=== PATIENT | male | born 1970 | race Caucasian/White ===

== ENCOUNTER 2016-08-22 22:07 | Emergency (ER) | payer MEDICAID ==
[2016-08-22] MEDS ORDERED: NS 1,000 ML IV ONE (22:12)
--- NOTE | 2016-08-22 22:14 | EDPHY ---
H & P HPI/ROS: HPI CHIEF COMPLAINT: Overdose HISTORY OF PRESENT ILLNESS: This patient 46-year-old male significant past medical history for bipolar disorder, depression, anxiety, presents emergency room by EMS with police, for suicidal ideation and attempt of overdose of Adderall. Patient tells me took approximately 50-60 20 mg Adderall to end his life. He is in police custody. He denies taking anything else other medications he is prescribed his Neurontin and Klonopin. He denies taking anything else. Does endorse drinking 2 beers earlier today. Past Medical History: Bipolar, depression, anxiety, neuropathy, anxiety Past Surgical History: Denies surgical history Social History: Occasional alcohol use, denies drugs or tobacco. Family History: Noncontributory ROS REVIEW OF SYSTEMS: A comprehensive 10 point review of systems is otherwise negative aside from elements mentioned in the history of present illness. Exam Constitutional triage nursing summary reviewed, vital signs reviewed, awake/ alert. Eyes normal conjunctivae and sclera, EOMI, PERRLA. HENT normal inspection, atraumatic, moist mucus membranes, no epistaxis, neck supple/ no meningismus, no raccoon eyes. Respiratory clear to auscultation bilaterally, normal breath sounds, no respiratory distress, no wheezing. Cardiovascular rate normal, regular rhythm, no murmur, no edema, distal pulses normal. Gastrointestinal soft, non-tender, no rebound, no guarding, normal bowel sounds, no distension, no pulsatile mass. Genitourinary no CVA tenderness. Musculoskeletal no midline vertebral tenderness, full range of motion, no calf swelling, no tenderness of extremities, no meningismus, good pulses, neurovascularly intact. Skin pink, warm, & dry, no rash, skin atraumatic. Neurologic awake, alert and oriented x 3, AAOx3, moves all 4 extremities equally, motor intact, sensory intact, CN II-XII intact, normal cerebellar, normal vision, normal speech. Psychiatric flat affect, depressed Heme/Lymph/Immune no lymphadenopathy. Differential Diagnosis: Includes but is not limited to in a particular order, drug overdose, Adderall overdose, suicidal ideation, depression, bipolar disorder Medical Decision Making: Patient be placed on full monitor technician patient had an IV established receive a fluid bolus will contact poison Control about the 50 -60 20 mg Adderall. Will check blood work including LFTs, CBC, electrolytes, aspirin level, Tylenol level, alcohol, drug screen. Re-evaluation: EKG interpretation by me on record in [employer] system. Impression time of EKG 09/09/2026 this is sinus rhythm rate of 93 no signs of arrhythmia, no prolonged intervals, no signs of acute ischemia normal appearing EKG. 0213: re-examination at this time this patient is resting comfortably. he has been monitored close to 5 hours here in the emergency room is not not had any signs of agitation, no signs of tachycardia, no signs of serotonin syndrome or other toxidrome. His vitals have been normal resting comfortably he has no complaints he states he feels well. Specifically denies agitation, denies feeling anxious, denies headache nausea vomiting abdominal pain or chest pain. It is unlikely the took this much Adderall. There has been no evidence of an acute ingestion. Specifically he has not been agitated. He is comfortable discharge. Source: Patient, Police, EMS Constitutional: Initial Vital Signs Temperature (C) 36.6 C 08/22/16 22:17 Heart Rate 106 H 08/22/16 22:17 Respiratory Rate 16 08/22/16 22:17 Blood Pressure 143/98 H 08/22/16 22:17 O2 Sat (%) 99 08/22/16 22:17 O2 Delivery Mode Room Air Allergies/Adverse Reactions: No Known Allergies Allergy (Unverified 08/22/16 22:15) Home Medications: Medication Instructions Recorded Adderall 10 MG (*) 08/22/16 CLONAZEPAM 08/22/16 Neurontin 300 MG (*) 08/22/16 Medical Decision Making - Data Points Laboratory Results: Laboratory Results 08/22/16 22:20 08/22/16 22:20 08/22/16 08/22/16 22:34 22:20 WBC 7.41 10^3/uL (3.80-9.50) RBC 4.60 10^6/uL (4.40-6.38) Hgb 13.8 g/dL (13.7-17.5) Hct 39.9 L % (40.0-51.0) MCV 86.7 fL (81.5-99.8) MCH 30.0 pg (27.9-34.1) MCHC 34.6 g/dL (32.4-36.7) RDW 15.7 H % (11.5-15.2) Plt Count 369 10^3/uL (150-400) MPV 8.9 fL (8.7-11.7) Neut % (Auto) 65.0 % (39.3-74.2) Lymph % (Auto) 28.2 % (15.0-45.0) [place] % (Auto) 5.7 % (4.5-13.0) Eos % (Auto) 0.1 L % (0.6-7.6) Baso % (Auto) 0.7 % (0.3-1.7) Nucleat RBC Rel Count 0.0 % (0.0-0.2) Absolute Neuts (auto) 4.82 10^3/uL (1.70-6.50) Absolute Lymphs (auto) 2.09 10^3/uL (1.00-3.00) Absolute Monos (auto) 0.42 10^3/uL (0.30-0.80) Absolute Eos (auto) 0.01 L 10^3/uL (0.03-0.40) Absolute Basos (auto) 0.05 10^3/uL (0.02-0.10) Absolute Nucleated RBC 0.00 10^3/uL (0-0.01) Immature Gran % 0.3 % (0.0-1.1) Immature Gran # 0.02 10^3/uL (0.00-0.10) Sodium 141 mEq/L (134-144) Potassium 4.2 mEq/L (3.5-5.2) Chloride 110 mEq/L (97-110) Carbon Dioxide 21 L mEq/l (22-31) Anion Gap 10 mEq/L (8-16) BUN 8 mg/dL (7-23) Creatinine 1.0 mg/dL (0.7-1.3) Estimated GFR > 60 Glucose 89 mg/dL (70-100) Calcium 9.1 mg/dL (8.5-10.4) Total Bilirubin 0.6 mg/dL (0.1-1.4) Conjugated Bilirubin 0.3 mg/dL (0.0-0.5) Unconjugated Bilirubin 0.3 mg/dL (0.0-1.1) AST 52 IU/L (17-59) ALT 50 IU/L (21-72) Alkaline Phosphatase 72 IU/L (38-126) Total Protein 7.6 g/dL (6.3-8.2) Albumin 3.9 g/dL (3.5-5.0) Salicylates < 1.0 L mg/dL (2.0-20.0) Urine Opiates Screen NEGATIVE (NEGATIVE) Acetaminophen < 10 L mcg/mL (10.0-30.0) Urine Barbiturates NEGATIVE (NEGATIVE) Ur Phencyclidine Scrn NEGATIVE (NEGATIVE) Ur Amphetamine Screen NON-NEGATIVE H (NEGATIVE) U Benzodiazepines Scrn NEGATIVE (NEGATIVE) Urine Cocaine Screen NEGATIVE (NEGATIVE) U Marijuana (THC) Screen NEGATIVE (NEGATIVE) Ethyl Alcohol 120 H mg/dL (0-10) Medications Given: Discontinued Medications Sodium Chloride (Ns) 1,000 mls @ 0 mls/hr IV ONCE ONE PRN Reason: As Directed Stop: 08/22/16 22:13 Last Admin: 08/22/16 22:25 Dose: 1,000 mls Departure - Departure Disposition: Home, Routine, Self-Care Clinical Impression: Depression Qualifiers: Depression Type: major depressive disorder Major depression recurrence: single episode Active/Remission status: currently active Major depression episode severity: mild Qualifier Code: (F32.0) Major depressive disorder, single episode , mild Condition: Good Instructions: Depression (ED) Additional Instructions: 1. Patient is medically cleared for [facility].
[2016-08-22 22:21] VITALS: RESP 16; TEMP 97.9
--- NOTE | 2016-08-22 22:29 | CPEKG ---
Heart Rate: 93 RR Interval: 645 P-R Interval: 136 QRSD Interval: 86 QT Interval: 360 QTC Interval: 448 P [place]: 60 QRS [place]: 77 T Wave [place]: 56 EKG Severity - NORMAL ECG - EKG Impression: SINUS RHYTHM Electronically Signed By: Leonardo Carrillo 23-Aug-2016 05:38:57
[2016-08-22 22:33] LABS: % IMMATURE GRANULYOCYTES 0.3 % (0.0-1.1); ABSOLUTE IMMATURE GRANULOCYTES 0.02 10^3/uL (0.00-0.10); ADD DIFF? NO; ADD MORPH? NO; ADD SCAN? NO; ATYPICAL LYMPHOCYTE FLAG 0 (0-99); FRAGMENT RBC FLAG 0 (0-99); HEMATOCRIT 39.9 % (40.0-51.0); HEMOGLOBIN 13.8 g/dL (13.7-17.5); LEFT SHIFT FLG 0 (0-99); LIPEMIA HEMOLYSIS FLAG 90 (0-99); MEAN CELL HEMOGLOBIN CONCENTR. 34.6 g/dL (32.4-36.7); MEAN CELL VOLUME 86.7 fL (81.5-99.8); MEAN PLATELET VOLUME 8.9 fL (8.7-11.7); PLATELET CLUMPS FLAG 0 (0-99); PLATELET COUNT 369 10^3/uL (150-400); RED CELL DISTRIBUTION WIDTH 15.7 % (11.5-15.2)
[2016-08-22 22:59] LABS: ALANINE AMINOTRANSFERASE 50 IU/L (21-72); ALBUMIN 3.9 g/dL (3.5-5.0); ALKALINE PHOSPHATASE 72 IU/L (38-126); ANION GAP 10 mEq/L (8-16); ASPARTATE AMINOTRANSFERASE 52 IU/L (17-59); BILIRUBIN,TOTAL 0.6 mg/dL (0.1-1.4); BILIRUBIN-CONJUGATED 0.3 mg/dL (0.0-0.5); BILIRUBIN-UNCONJUGATED 0.3 mg/dL (0.0-1.1); CALCIUM 9.1 mg/dL (8.5-10.4); CARBON DIOXIDE 21 mEq/l (22-31); CHLORIDE 110 mEq/L (97-110); ETHANOL SERUM 120 mg/dL (0-10); GLOMERULAR FILTRATION RATE > 60; GLUCOSE 89 mg/dL (70-100); POTASSIUM 4.2 mEq/L (3.5-5.2); SALICYLATE < 1.0 mg/dL (2.0-20.0); SODIUM 141 mEq/L (134-144); TOTAL PROTEIN 7.6 g/dL (6.3-8.2)
[2016-08-23 02:02] VITALS: BP 142/101; PULSE 74; O2SAT 95
== END 2016-08-23 02:37 | disposition home or self-care (01) ==
DX: F32.0 Major depressive disorder, single episode, mild (principal)
CPT/HCPCS: 80305; G0480

== ENCOUNTER 2016-09-16 21:15 | Emergency (ER) | payer MEDICAID ==
--- NOTE | 2016-09-16 21:32 | EDPHY ---
H & P Time Seen by Provider: 09/16/16 21:28 HPI/ROS: CHIEF COMPLAINT: Concerned about heroin overdose. HISTORY OF PRESENT ILLNESS: The patient is a 46-year-old male who presents worried that he overdosed on heroin, which he took an hour ago. He was seen at the [facility] and sent here. His last alcoholic drink was an hour ago and his last Klonopin was 2 hours ago. He is hoping to start detoxing off these medications and is seeking resources. He is concerned for grand mal withdrawal seizures, which he has had before. He denies recent sickness. REVIEW OF SYSTEMS: A complete 10-point review of systems was performed and is negative except for those items mentioned in the HPI. Past Medical/Surgical History: Seizures. Social History: Smoker, polysubstance abuse. Smoking Status: Current every day smoker Physical Exam: General Appearance: Alert, pleasant Eyes: Pupils equal and round, 3mm, no conjunctival pallor or injection ENT, Mouth: Mucous membranes moist Neck: Normal inspection Respiratory: Lungs are clear to auscultation Cardiovascular: Regular rate and rhythm Gastrointestinal: Abdomen is soft and non-tender Neurological: A&O, nonfocal, normal gait Skin: Warm and dry, no rash Extremities: Normal inspection Psychiatric: Mood and affect normal Constitutional: Initial Vital Signs Heart Rate 106 H 09/16/16 22:00 Respiratory Rate 18 09/16/16 22:00 Blood Pressure 127/89 H 09/16/16 22:00 O2 Sat (%) 95 09/16/16 22:00 O2 Delivery Mode Room Air Allergies/Adverse Reactions: No Known Allergies Allergy (Unverified 08/22/16 22:15) Home Medications: Medication Instructions Recorded Adderall 10 MG (*) 08/22/16 CLONAZEPAM 08/22/16 Neurontin 300 MG (*) 08/22/16 IBUPROFEN 09/16/16 Medical Decision Making ED Course/Re-evaluation: Mental Health will speak to the patient about rehab resources. He will be monitored in the emergency room for effects related to the heroin. 2199: The mental health air brake worker has consulted with the patient. They are working on resources for the patient and considering treatment options. 2235: Reassessed patient. The mental health air brake worker has finished her consultation and provided the patient numerous resources, which he will follow up with. On exam he shows no evidence of respiratory compromise secondary to opiate use. He is safe and stable for discharge at this time. He is comfortable with the plan. Departure - Departure Disposition: Home, Routine, Self-Care Clinical Impression: Polysubstance abuse Condition: Good Instructions: Polysubstance Abuse (ED) Additional Instructions: Follow up with the resources provided to you by the mental health air brake worker. Return for any serious worsening of condition. Referrals: [facility],. [Clinic] - As per Instructions Report Scribed for: Letty Anders Report Scribed by: Gabe Barakat Date of Report: 09/16/16 Time of Report: 21:29 Physician Review and Approval Statement: 09/16/16 21:30 Portions of this note were transcribed by a administrative medical director. I personally performed a history, physical exam, medical decision making, and confirmed accuracy of information the transcribed note.
[2016-09-16 22:19] VITALS: BP 127/89; RESP 18
[2016-09-16 22:47] VITALS: PULSE 101; TEMP 98.2; O2SAT 94
== END 2016-09-16 22:53 | disposition home or self-care (01) ==
DX: F19.10 Other psychoactive substance abuse, uncomplicated (principal); F17.200 Nicotine dependence, unspecified, uncomplicated

== ENCOUNTER 2016-12-16 10:26 | Emergency (ER) | payer MEDICAID ==
[2016-12-16 10:30] VITALS: TEMP 98.2
[2016-12-16] MEDS ORDERED: IOPAMIDOL (ISOVUE 370) 100 ML BTL IV ONE (11:07)
--- NOTE | 2016-12-16 11:08 | EDPHY ---
H & P Stated Complaint: "I think I have walking PNA" Resp sxs ~ 1month Source: Patient - Personal History Current Tetanus Diphtheria and Acellular Pertussis (TDAP): Yes - Medical/Surgical History Hx Asthma: No Hx Chronic Respiratory Disease: No Hx Diabetes: No Hx Cardiac Disease: No Hx Renal Disease: No Hx Cirrhosis: No Hx Alcoholism: Yes Hx HIV/AIDS: No Hx Splenectomy or Spleen Trauma: No Other PMH: PMHx: depression, anxiety, suicide attempts, Hep C+, etoh, IV drug user, ADHD, bipolar disorder. PSHx: liver biopsy, tooth extraction - Social History Smoking Status: Current every day smoker HPI/ROS: CHIEF COMPLAINT: "I think I have pneumonia" HISTORY OF PRESENT ILLNESS: Patient reports that he feels he may have pneumonia. He has had symptoms over the month including shortness of breath, cough, chest pressure. No fever. He feels the same as when he has had pneumonia in the past. He has intermittent pressure and shortness of breath. He has no chest pain with exertion. He has no abdominal urinary complaints. No headache. No neck pain. No lesions or rashes. He does admit to alcoholism and heroin abuse. Most recently use yesterday. No other associated complaints or modifying factors. REVIEW OF SYSTEMS: Ten systems reviewed and are negative unless otherwise noted in the HPI PERTINENT MEDICAL HISTORY: Alcoholism, IV heroin abuse EXAMINATION General Appearance: Alert, no distress, nontoxic Head: normocephalic, atraumatic Eyes: Pupils equal and round, no conjunctival pallor or injection ENT, Mouth: Mucous membranes moist. Uvula midline. No erythema or edema. Neck: Normal inspection, supple, non-tender. No meningismus or rigidity. Respiratory: Scattered rhonchi. No crackles. No diminishment. No retractions. Cardiovascular: Regular rate and rhythm. No murmur. Pulses intact distally in symmetrically Gastrointestinal: Abdomen is soft and nontender. No tenderness. Back: non-tender, no bony abnormalities Neurological: GCS 15. A&O, nonfocal, normal gait Skin: Warm and dry, no rash. No petechiae or purpura. No splinter lesions. No lesions of the palms of the hands or soles of the feet. Extremities: Nontender, no pedal edema Psychiatric: Mood and affect normal DIFFERENTIAL DIAGNOSES: Including but not limited to pneumonia, bronchitis, influenza, viral illness, PE , endocarditis, ACS MDM: 11:03 a.m. Cough, chest pressure and respiratory complaints over the past month. The patient feels that he has pneumonia. He is tachycardic but he is afebrile, he is not tachypneic and he does not appear toxic. Laboratory studies, blood cultures, lactic acid, CT scan of the chest have been ordered. 11:20 a.m. Patient does have a history of IV drug abuse, thus IV access has been difficult. We have so far obtained an EJ access. Due to this, and the inability to obtain a CT angiography through this IV, I have ordered a D-dimer and a two view chest x-ray. Will continue with IV fluid resuscitation in the event that we may need to obtain a secondary IV access point. 12:00 p.m. He was re-evaluated the patient. He is resting calmly. Laboratory studies are negative including a negative troponin and BNP. CT scan is pending. 12:40 p.m. Notified by radiologist Dr. Khan. CT scan of the chest is negative for PE or any pulmonary findings. There is no acute finding. 12:50 p.m. I have re-evaluated the patient. He is tachycardic but in no acute distress. I informed him of the negative laboratory studies, negative EKG, negative chest x- ray and CT scan. He informed me that he is feeling withdrawal symptoms from both alcohol and heroin. He informed me that he normally has started to drink alcohol by this time and has not had anything since 12 o'clock last night. I have ordered IV Ativan as well as another L of IV fluid and will monitor him 1:50 p.m. Patient is feeling much better after the Ativan in fluid. He is still mildly tachycardic. I have discussed this with Dr. Leal. He has is comfortable with the patient discharged home at this time. I suspect this is due to lack of alcohol intake and lack of heroin use. I provided prescription for clonidine. Additionally, the sample case porter shared visit with him. She provided multiple outpatient resource for the patient. He declined being sent to the [facility] with Librium taper. He is discharged home at his request in stable condition. SUPERVISION: [facility] Constitutional: Initial Vital Signs Temperature (C) 36.8 C 12/16/16 10:27 Heart Rate 126 H 12/16/16 10:27 Respiratory Rate 18 12/16/16 10:27 Blood Pressure 117/98 H 12/16/16 10:27 O2 Sat (%) 95 12/16/16 10:27 O2 Delivery Mode Room Air Allergies/Adverse Reactions: No Known Allergies Allergy (Verified 12/16/16 10:27) Home Medications: Medication Instructions Recorded Adderall 10 MG (*) 08/22/16 CLONAZEPAM 08/22/16 Neurontin 300 MG (*) 08/22/16 IBUPROFEN 09/16/16 Albuterol [Proventil Inhaler HFA 1 - 2 puffs IH Q4H PRN #1 mdi 12/16/16 (*)] Azithromycin [Zithromax] 250 mg PO DAILY #6 tab 12/16/16 clonIDINE [Catapres (*)] 0.1 mg PO TID PRN #15 tab 12/16/16 Medical Decision Making - Diagnostics EKG Interpretation: EKG interpreted by me was normal (Brian Leal) Imaging Results: Imaging Impressions Chest/Thorax CTA 12/16/16 11:02 Impression: 1. No evidence of thrombopulmonary embolic disease. 2. Clear lungs. No pneumonia or acute process. 3. Tiny benign calcified granuloma in the right lower lobe. Findings discussed with Emergency Department physician after school program assistant, Hung Cobos PA-C on December 16, 2016 at 1241 hours. Chest X-Ray 12/16/16 11:26 Impression: Clear lungs. No acute process. ED Course/Re-evaluation: I did not see this patient while he was in the emergency department. However his care was discussed with the PA while the patient was in the department. I agree with treatment plan and management (Brian Leal) - Data Points Laboratory Results: Laboratory Results 12/16/16 11:22 12/16/16 11:22 12/16/16 12/16/16 12/16/16 11:22 11:22 11:22 WBC 9.63 10^3/uL H 10^3/uL (3.80-9.50) RBC 4.49 10^6/uL 10^6/uL (4.40-6.38) Hgb 13.2 g/dL L g/dL (13.7-17.5) Hct 38.5 % L % (40.0-51.0) MCV 85.7 fL fL (81.5-99.8) MCH 29.4 pg pg (27.9-34.1) MCHC 34.3 g/dL g/dL (32.4-36.7) RDW 14.3 % % (11.5-15.2) Plt Count 339 10^3/uL 10^3/uL (150-400) MPV 9.2 fL fL (8.7-11.7) Neut % (Auto) 71.8 % % (39.3-74.2) Lymph % (Auto) 20.5 % % (15.0-45.0) [place] % (Auto) 7.2 % % (4.5-13.0) Eos % (Auto) 0.0 % L % (0.6-7.6) Baso % (Auto) 0.2 % L % (0.3-1.7) Nucleat RBC Rel Count 0.0 % % (0.0-0.2) Absolute Neuts (auto) 6.92 10^3/uL H 10^3/uL (1.70-6.50) Absolute Lymphs (auto) 1.97 10^3/uL 10^3/uL (1.00-3.00) Absolute Monos (auto) 0.69 10^3/uL 10^3/uL (0.30-0.80) Absolute Eos (auto) 0.00 10^3/uL L 10^3/uL (0.03-0.40) Absolute Basos (auto) 0.02 10^3/uL 10^3/uL (0.02-0.10) Absolute Nucleated RBC 0.00 10^3/uL 10^3/uL (0-0.01) Immature Gran % 0.3 % % (0.0-1.1) Immature Gran # 0.03 10^3/uL 10^3/uL (0.00-0.10) PT 12.4 SEC SEC (12.0-15.0) INR 0.93 (0.83-1.16) APTT 24.4 SEC SEC (23.0-38.0) D-Dimer 0.50 ug/mLFEU ug/mLFEU (0.00-0.50) VBG Lactic Acid Sodium 140 mEq/L mEq/L (134-144) Potassium 4.1 mEq/L mEq/L (3.5-5.2) Chloride 107 mEq/L mEq/L (97-110) Carbon Dioxide 21 mEq/l L mEq/l (22-31) Anion Gap 12 mEq/L mEq/L (8-16) BUN 15 mg/dL mg/dL (7-23) Creatinine 0.9 mg/dL mg/dL (0.7-1.3) Estimated GFR > 60 Glucose 127 mg/dL H mg/dL (70-100) Calcium 9.2 mg/dL mg/dL (8.5-10.4) Total Bilirubin 0.5 mg/dL mg/dL (0.1-1.4) Troponin I < 0.012 ng/mL ng/mL (0-0.034) NT-Pro-B Natriuret Pep 59 pg/mL pg/mL (0-125) 12/16/16 11:22 WBC RBC Hgb Hct MCV MCH MCHC RDW Plt Count MPV Neut % (Auto) Lymph % (Auto) [place] % (Auto) Eos % (Auto) Baso % (Auto) Nucleat RBC Rel Count Absolute Neuts (auto) Absolute Lymphs (auto) Absolute Monos (auto) Absolute Eos (auto) Absolute Basos (auto) Absolute Nucleated RBC Immature Gran % Immature Gran # PT INR APTT D-Dimer VBG Lactic Acid 1.9 mmol/L mmol/L (0.7-2.1) Sodium Potassium Chloride Carbon Dioxide Anion Gap BUN Creatinine Estimated GFR Glucose Calcium Total Bilirubin Troponin I NT-Pro-B Natriuret Pep Medications Given: Discontinued Medications Sodium Chloride (Ns) 1,000 mls @ 0 mls/hr IV ONCE ONE PRN Reason: Wide Open Stop: 12/16/16 11:33 Last Admin: 12/16/16 11:36 Dose: 1,000 mls Sodium Chloride (Ns) 1,000 mls @ 0 mls/hr IV ONCE ONE PRN Reason: Wide Open Stop: 12/16/16 12:50 Last Admin: 12/16/16 12:53 Dose: 1,000 mls Lorazepam (Ativan Injection) 2 mg IVP EDNOW ONE Stop: 12/16/16 12:49 Last Admin: 12/16/16 12:53 Dose: 2 mg Departure - Departure Disposition: Home, Routine, Self-Care Clinical Impression: Cough, Substance abuse, Alcohol abuse Chest pain Qualifiers: Chest pain type: unspecified Qualified Code(s): R07.9 - Chest pain, unspecified Condition: Good Instructions: Chest Pain (ED), Acute Bronchitis (ED) Additional Instructions: Medications as discussed. Contact primary care physician tomorrow morning for follow-up and to discuss further workup for the chest pain. Return here for worsening symptoms, fever, chills, rashes, lesions on the fingernails or palms of the hands Referrals: DR SILVA [Other] - As per Instructions Prescriptions: Albuterol [Proventil Inhaler HFA (*)] 1 - 2 puffs IH Q4H PRN #1 mdi PRN Reason: Short Of Breath/Dyspnea Azithromycin [Zithromax] 250 mg PO DAILY #6 tab clonIDINE [Catapres (*)] 0.1 mg PO TID PRN #15 tab PRN Reason: Pain, Mild
[2016-12-16 11:29] LABS: % IMMATURE GRANULYOCYTES 0.3 % (0.0-1.1); ABSOLUTE IMMATURE GRANULOCYTES 0.03 10^3/uL (0.00-0.10); ADD DIFF? NO; ADD MORPH? NO; ADD SCAN? NO; ATYPICAL LYMPHOCYTE FLAG 30 (0-99); FRAGMENT RBC FLAG 0 (0-99); HEMATOCRIT 38.5 % (40.0-51.0); HEMOGLOBIN 13.2 g/dL (13.7-17.5); LEFT SHIFT FLG 0 (0-99); LIPEMIA HEMOLYSIS FLAG 90 (0-99); MEAN CELL HEMOGLOBIN 29.4 pg (27.9-34.1); MEAN CELL HEMOGLOBIN CONCENTR. 34.3 g/dL (32.4-36.7); MEAN CELL VOLUME 85.7 fL (81.5-99.8); MEAN PLATELET VOLUME 9.2 fL (8.7-11.7); PLATELET CLUMPS FLAG 10 (0-99); PLATELET COUNT 339 10^3/uL (150-400); RED BLOOD CELL COUNT 4.49 10^6/uL (4.40-6.38); RED CELL DISTRIBUTION WIDTH 14.3 % (11.5-15.2)
[2016-12-16] MEDS ORDERED: NS 1,000 ML IV ONE ×2 (11:32→12:49)
[2016-12-16 11:41] LABS: INR 0.93 (0.83-1.16); PROTIME(PATIENT) 12.4 SEC (12.0-15.0)
[2016-12-16 11:42] LABS: APTT 24.4 SEC (23.0-38.0)
[2016-12-16 11:49] LABS: ANION GAP 12 mEq/L (8-16); BILIRUBIN,TOTAL 0.5 mg/dL (0.1-1.4); CALCIUM 9.2 mg/dL (8.5-10.4); CARBON DIOXIDE 21 mEq/l (22-31); CHLORIDE 107 mEq/L (97-110); CREATININE 0.9 mg/dL (0.7-1.3); GLOMERULAR FILTRATION RATE > 60; GLUCOSE 127 mg/dL (70-100); POTASSIUM 4.1 mEq/L (3.5-5.2); SODIUM 140 mEq/L (134-144)
[2016-12-16 11:59] LABS: TROPONIN I < 0.012 ng/mL (0-0.034)
--- NOTE | 2016-12-16 12:15 | CPEKG ---
Heart Rate: 135 RR Interval: 444 P-R Interval: 92 QRSD Interval: 108 QT Interval: 292 QTC Interval: 438 P Crane: 69 QRS Crane: 90 T Wave Crane: 17 EKG Severity - ABNORMAL ECG - EKG Impression: SINUS TACHYCARDIA EKG Impression: PROBABLE INFERIOR INFARCT, AGE INDETERMINATE Electronically Signed By: Brian Leal 16-Dec-2016 15:38:03
[2016-12-16] MEDS ORDERED: LORazepam 2 MG/ML INJ IVP ONE (12:48)
[2016-12-16 14:15] VITALS: O2SAT 96
[2016-12-16 14:17] VITALS: BP 122/71; PULSE 126; RESP 14
== END 2016-12-16 14:31 | disposition home or self-care (01) ==
DX: R05 Cough (principal); R07.9 Chest pain, unspecified; F10.10 Alcohol abuse, uncomplicated; F19.10 Other psychoactive substance abuse, uncomplicated; F17.200 Nicotine dependence, unspecified, uncomplicated
CPT/HCPCS: 96374; J2060; Q9967

== ENCOUNTER 2016-12-30 21:56 | Emergency (ER) | payer MEDICAID ==
--- NOTE | 2016-12-30 22:42 | EDPHY ---
H & P Stated Complaint: seeking detox, feels like having etoh/heroin/meth related withdrawal Time Seen by Provider: 12/30/16 22:17 HPI/ROS: CHIEF COMPLAINT: Suicidal ideation, wanting detox HISTORY OF PRESENT ILLNESS: This is a 46-year-old male patient presenting to the emergency department reports wanting help to get clean wants detox, also reports suicidal thoughts x2 weeks. Patient states" I need detox to stop drinking and doing drugs, can keep doing this I just want to kill myself" patient reports also having auditory hallucinations " hearing people telling me they want to kill me, today was the worst" patient states last alcohol use was 20 minutes prior to arrival, heroin last night, meth this morning. Denies any suicide attempt REVIEW OF SYSTEMS: Constitutional: No fever, no chills. Eyes: No discharge. No blurred vision ENT: No sore throat. Hearing voices "they want to kill me" Cardiovascular: No chest pain, no palpitations. Respiratory: No cough, no shortness of breath. Gastrointestinal: No abdominal pain, no vomiting. Genitourinary: No hematuria. Musculoskeletal: No back pain. Skin: No rashes. Neurological: No headache. Source: Patient, Family - Medical/Surgical History Hx Asthma: No Hx Chronic Respiratory Disease: Yes Hx Diabetes: No Hx Cardiac Disease: No Hx Renal Disease: No Hx Cirrhosis: No Hx Alcoholism: Yes Hx HIV/AIDS: No Hx Splenectomy or Spleen Trauma: No Other PMH: PMHx: depression, anxiety, suicide attempts, Hep C+, etoh, IV drug user, ADHD, bipolar disorder, chronic bronchitis. PSHx: liver biopsy, tooth extraction - Social History Smoking Status: Current every day smoker - Physical Exam Exam: General Appearance: Alert, no distress. Well-appearing Eyes: Pupils equal and round no pallor or injection. ENT, Mouth: Mucous membranes moist. Respiratory: There are no retractions, lungs are clear to auscultation. Cardiovascular: Regular rate and rhythm. Gastrointestinal: Abdomen is soft and nontender, no masses, bowel sounds normal. Neurological: No focal deficits. Ambulatory without gait disturbance Skin: Warm and dry, no rashes. Non tremulous Musculoskeletal: Neck is supple nontender. Extremities: symmetrical, full range of motion. Psychiatric: Patient is oriented X 3, there is no agitation. Flat affect Constitutional: Initial Vital Signs Temperature (C) 37.3 C 12/30/16 21:59 Heart Rate 119 H 12/30/16 21:59 Respiratory Rate 18 12/30/16 21:59 Blood Pressure 121/87 H 12/30/16 21:59 O2 Sat (%) 95 12/30/16 21:59 O2 Delivery Mode Room Air Allergies/Adverse Reactions: No Known Allergies Allergy (Verified 12/30/16 22:04) Home Medications: Medication Instructions Recorded Adderall 10 MG (*) 08/22/16 CLONAZEPAM 08/22/16 Neurontin 300 MG (*) 08/22/16 IBUPROFEN 09/16/16 Albuterol [Proventil Inhaler HFA 1 - 2 puffs IH Q4H PRN #1 mdi 12/16/16 (*)] clonIDINE [Catapres (*)] 0.1 mg PO TID PRN #15 tab 12/16/16 Medical Decision Making ED Course/Re-evaluation: Discussed ED plan of care with patient and : CBC, BMP, UA drug screen, alcohol level 2345: Report handed off to Dr. Macdonald, patient stable not in any distress calm, at bedside. Patient is aware he will not be at evaluated until the morning due to drugs in his system - Data Points Laboratory Results: Laboratory Results 12/30/16 22:38 12/30/16 22:38 12/30/16 12/30/16 12/30/16 22:38 22:38 22:38 WBC 8.31 10^3/uL 10^3/uL (3.80-9.50) RBC 4.37 10^6/uL L 10^6/uL (4.40-6.38) Hgb 12.9 g/dL L g/dL (13.7-17.5) Hct 37.5 % L % (40.0-51.0) MCV 85.8 fL fL (81.5-99.8) MCH 29.5 pg pg (27.9-34.1) MCHC 34.4 g/dL g/dL (32.4-36.7) RDW 14.2 % % (11.5-15.2) Plt Count 256 10^3/uL 10^3/uL (150-400) MPV 8.5 fL L fL (8.7-11.7) Neut % (Auto) 67.7 % % (39.3-74.2) Lymph % (Auto) 22.5 % % (15.0-45.0) [place] % (Auto) 8.7 % % (4.5-13.0) Eos % (Auto) 0.4 % L % (0.6-7.6) Baso % (Auto) 0.5 % % (0.3-1.7) Nucleat RBC Rel Count 0.0 % % (0.0-0.2) Absolute Neuts (auto) 5.63 10^3/uL 10^3/uL (1.70-6.50) Absolute Lymphs (auto) 1.87 10^3/uL 10^3/uL (1.00-3.00) Absolute Monos (auto) 0.72 10^3/uL 10^3/uL (0.30-0.80) Absolute Eos (auto) 0.03 10^3/uL 10^3/uL (0.03-0.40) Absolute Basos (auto) 0.04 10^3/uL 10^3/uL (0.02-0.10) Absolute Nucleated RBC 0.00 10^3/uL 10^3/uL (0-0.01) Immature Gran % 0.2 % % (0.0-1.1) Immature Gran # 0.02 10^3/uL 10^3/uL (0.00-0.10) Sodium 134 mEq/L mEq/L (134-144) Potassium 3.7 mEq/L mEq/L (3.5-5.2) Chloride 101 mEq/L mEq/L (97-110) Carbon Dioxide 22 mEq/l mEq/l (22-31) Anion Gap 11 mEq/L mEq/L (8-16) BUN 14 mg/dL mg/dL (7-23) Creatinine 1.0 mg/dL mg/dL (0.7-1.3) Estimated GFR > 60 Glucose 75 mg/dL mg/dL (70-100) Calcium 9.2 mg/dL mg/dL (8.5-10.4) Urine Opiates Screen NON-NEGATIVE H (NEGATIVE) Urine Barbiturates NEGATIVE (NEGATIVE) Ur Phencyclidine Scrn NEGATIVE (NEGATIVE) Ur Amphetamine Screen NON-NEGATIVE H (NEGATIVE) U Benzodiazepines Scrn NEGATIVE (NEGATIVE) Urine Cocaine Screen NON-NEGATIVE H (NEGATIVE) U Marijuana (THC) Screen NON-NEGATIVE H (NEGATIVE) Ethyl Alcohol 54 mg/dL H mg/dL (0-10) Departure - Departure Referrals: Sarah England NP [Primary Care Provider] - As per Instructions
[2016-12-30 22:51] LABS: % IMMATURE GRANULYOCYTES 0.2 % (0.0-1.1); ABSOLUTE IMMATURE GRANULOCYTES 0.02 10^3/uL (0.00-0.10); ADD DIFF? NO; ADD MORPH? NO; ADD SCAN? NO; ATYPICAL LYMPHOCYTE FLAG 90 (0-99); FRAGMENT RBC FLAG 0 (0-99); HEMATOCRIT 37.5 % (40.0-51.0); HEMOGLOBIN 12.9 g/dL (13.7-17.5); LEFT SHIFT FLG 0 (0-99); LIPEMIA HEMOLYSIS FLAG 90 (0-99); MEAN CELL HEMOGLOBIN 29.5 pg (27.9-34.1); MEAN CELL HEMOGLOBIN CONCENTR. 34.4 g/dL (32.4-36.7); MEAN CELL VOLUME 85.8 fL (81.5-99.8); MEAN PLATELET VOLUME 8.5 fL (8.7-11.7); PLATELET CLUMPS FLAG 0 (0-99); PLATELET COUNT 256 10^3/uL (150-400); RED BLOOD CELL COUNT 4.37 10^6/uL (4.40-6.38); RED CELL DISTRIBUTION WIDTH 14.2 % (11.5-15.2)
[2016-12-30 23:04] LABS: ANION GAP 11 mEq/L (8-16); CALCIUM 9.2 mg/dL (8.5-10.4); CARBON DIOXIDE 22 mEq/l (22-31); CHLORIDE 101 mEq/L (97-110); ETHANOL SERUM 54 mg/dL (0-10); GLOMERULAR FILTRATION RATE > 60; GLUCOSE 75 mg/dL (70-100); POTASSIUM 3.7 mEq/L (3.5-5.2); SODIUM 134 mEq/L (134-144)
[2016-12-31 12:31] VITALS: BP 127/79; PULSE 81; RESP 17; TEMP 98.8; O2SAT 95
== END 2016-12-31 12:30 | disposition home or self-care (01) ==
DX: F19.10 Other psychoactive substance abuse, uncomplicated (principal); F17.200 Nicotine dependence, unspecified, uncomplicated
CPT/HCPCS: 80305; G0480

== ENCOUNTER 2017-02-02 22:37 | Emergency (ER) | payer MEDICAID ==
[2017-02-02] MEDS ORDERED: LORazepam 2 MG/ML INJ IVP ONE (23:09)
[2017-02-02] MEDS ORDERED: NS 1,000 ML IV ONE ×2 (23:09→23:59)
--- NOTE | 2017-02-02 23:10 | EDPHY ---
H & P Stated Complaint: possible seizure Time Seen by Provider: 02/02/17 22:49 HPI/ROS: Chief Complaint: Seizure HPI: 46-year-old male presenting stating that he had a seizure earlier this evening. Patient states he has a history of tonic-clonic seizures in the past primarily associated with substance use. States that he has been clean for the last month or 2 but did relapse to use amphetamines and cocaine Friday and Friday. He did have some alcohol today. Patient states that he was walking along when he felt as if his seizures coming on. He lay down and states that he had full body convulsions. Interestingly he states he was awake for the entire episode which lasted about 3 minutes. Denies falling. Did not hit his head. No recent illness. Denies any substance use today other than couple sips of alcohol. Patient states that he has not been taking his medications today. ROS: 10 point Review of Systems is negative except as noted in the HPI. PMH: Hepatitis-C, ADD, bipolar disorder, chronic substance abuse Medications: Gabapentin, Adderall, ibuprofen, Klonopin Allergies: No known drug allergies Social History: No smoking, no alcohol, no recreational drug use Family History: non-contributory Physical Exam: Gen: Awake, Alert, anxious appearing HEENT: Nose: no rhinorrhea Eyes: PERRLA, EOMI Mouth: Dry mucosa Neck: Supple, no JVD Chest: nontender, lungs clear to auscultation Heart: S1, S2 normal, no murmur, tachycardic Abd: Soft, non-tender, no guarding Back: no CVA tenderness, no midline tenderness Ext: no edema, non-tender Skin: no rash Neuro: CN II-XII intact, Sensation grossly intact, Strength 5/5 in bilateral upper and lower extremities - Personal History Current Tetanus/Diphtheria Vaccine: Unsure Current Tetanus Diphtheria and Acellular Pertussis (TDAP): Unsure - Medical/Surgical History Hx Asthma: No Hx Chronic Respiratory Disease: Yes Hx Diabetes: No Hx Cardiac Disease: No Hx Renal Disease: No Hx Cirrhosis: No Hx Alcoholism: Yes Hx HIV/AIDS: No Hx Splenectomy or Spleen Trauma: No Other PMH: PMHx: depression, anxiety, suicide attempts, Hep C+, etoh, IV drug user, ADHD, bipolar disorder, chronic bronchitis. PSHx: liver biopsy, tooth extraction - Social History Smoking Status: Current every day smoker Constitutional: Initial Vital Signs Temperature (C) 37.3 C 02/02/17 22:37 Heart Rate 130 H 02/02/17 22:37 Respiratory Rate 16 02/02/17 22:37 Blood Pressure 126/91 H 02/02/17 22:37 O2 Sat (%) 95 02/02/17 22:37 O2 Delivery Mode Room Air Allergies/Adverse Reactions: No Known Allergies Allergy (Verified 12/30/16 22:04) Home Medications: Medication Instructions Recorded Adderall 10 MG (*) 08/22/16 IBUPROFEN 09/16/16 Gabapentin 02/02/17 Medical Decision Making ED Course/Re-evaluation: Patient's heart rate has resolved after IV fluids and Ativan. No evidence of seizure activity at this time. Patient is resting comfortably. Symptoms consistent with substance withdrawal. Will discharge with outpatient follow-up. - Data Points Laboratory Results: Laboratory Results 02/02/17 23:20 02/02/17 23:12 02/02/17 02/02/17 23:20 23:12 WBC 7.89 10^3/uL 10^3/uL (3.80-9.50) RBC 4.51 10^6/uL 10^6/uL (4.40-6.38) Hgb 13.2 g/dL L g/dL (13.7-17.5) Hct 38.7 % L % (40.0-51.0) MCV 85.8 fL fL (81.5-99.8) MCH 29.3 pg pg (27.9-34.1) MCHC 34.1 g/dL g/dL (32.4-36.7) RDW 14.0 % % (11.5-15.2) Plt Count 306 10^3/uL 10^3/uL (150-400) MPV 9.2 fL fL (8.7-11.7) Neut % (Auto) 59.8 % % (39.3-74.2) Lymph % (Auto) 29.0 % % (15.0-45.0) [place] % (Auto) 10.0 % % (4.5-13.0) Eos % (Auto) 0.3 % L % (0.6-7.6) Baso % (Auto) 0.5 % % (0.3-1.7) Nucleat RBC Rel Count 0.0 % % (0.0-0.2) Absolute Neuts (auto) 4.72 10^3/uL 10^3/uL (1.70-6.50) Absolute Lymphs (auto) 2.29 10^3/uL 10^3/uL (1.00-3.00) Absolute Monos (auto) 0.79 10^3/uL 10^3/uL (0.30-0.80) Absolute Eos (auto) 0.02 10^3/uL L 10^3/uL (0.03-0.40) Absolute Basos (auto) 0.04 10^3/uL 10^3/uL (0.02-0.10) Absolute Nucleated RBC 0.00 10^3/uL 10^3/uL (0-0.01) Immature Gran % 0.4 % % (0.0-1.1) Immature Gran # 0.03 10^3/uL 10^3/uL (0.00-0.10) Sodium 144 mEq/L mEq/L (134-144) Potassium 4.0 mEq/L mEq/L (3.5-5.2) Chloride 108 mEq/L mEq/L (97-110) Carbon Dioxide 20 mEq/l L mEq/l (22-31) Anion Gap 16 mEq/L mEq/L (8-16) BUN 23 mg/dL mg/dL (7-23) Creatinine 1.2 mg/dL mg/dL (0.7-1.3) Estimated GFR > 60 Glucose 103 mg/dL H mg/dL (70-100) Calcium 9.4 mg/dL mg/dL (8.5-10.4) Ethyl Alcohol < 10 mg/dL mg/dL (0-10) Medications Given: Discontinued Medications Sodium Chloride (Ns) 1,000 mls @ 0 mls/hr IV ONCE ONE PRN Reason: Wide Open Stop: 02/02/17 23:10 Last Admin: 02/02/17 23:26 Dose: 1,000 mls Sodium Chloride (Ns) 1,000 mls @ 0 mls/hr IV ONCE ONE PRN Reason: Wide Open Stop: 02/03/17 00:00 Last Admin: 02/02/17 23:59 Dose: 1,000 mls Lorazepam (Ativan Injection) 2 mg IVP EDNOW ONE Stop: 02/02/17 23:10 Last Admin: 02/02/17 23:26 Dose: 2 mg Departure - Departure Disposition: Home, Routine, Self-Care Clinical Impression: Substance abuse Condition: Good Instructions: Polysubstance Abuse (ED) Additional Instructions: Please seek help to discontinue using drugs and alcohol. Follow up with [facility] in 2-3 days for re-evaluation. Referrals: [facility],. [Clinic] - As per Instructions
[2017-02-02 23:37] LABS: % IMMATURE GRANULYOCYTES 0.4 % (0.0-1.1); ABSOLUTE IMMATURE GRANULOCYTES 0.03 10^3/uL (0.00-0.10); ADD DIFF? NO; ADD MORPH? NO; ADD SCAN? NO; ATYPICAL LYMPHOCYTE FLAG 0 (0-99); FRAGMENT RBC FLAG 0 (0-99); HEMATOCRIT 38.7 % (40.0-51.0); HEMOGLOBIN 13.2 g/dL (13.7-17.5); LEFT SHIFT FLG 0 (0-99); LIPEMIA HEMOLYSIS FLAG 90 (0-99); MEAN CELL HEMOGLOBIN 29.3 pg (27.9-34.1); MEAN CELL HEMOGLOBIN CONCENTR. 34.1 g/dL (32.4-36.7); MEAN CELL VOLUME 85.8 fL (81.5-99.8); MEAN PLATELET VOLUME 9.2 fL (8.7-11.7); PLATELET CLUMPS FLAG 0 (0-99); PLATELET COUNT 306 10^3/uL (150-400); RED BLOOD CELL COUNT 4.51 10^6/uL (4.40-6.38)
[2017-02-02 23:57] LABS: ANION GAP 16 mEq/L (8-16); CALCIUM 9.4 mg/dL (8.5-10.4); CARBON DIOXIDE 20 mEq/l (22-31); CHLORIDE 108 mEq/L (97-110); CREATININE 1.2 mg/dL (0.7-1.3); ETHANOL SERUM < 10 mg/dL (0-10); GLOMERULAR FILTRATION RATE > 60; GLUCOSE 103 mg/dL (70-100); SODIUM 144 mEq/L (134-144)
[2017-02-03 02:10] VITALS: BP 121/75; PULSE 78; RESP 16; TEMP 98.1; O2SAT 97
== END 2017-02-03 02:10 | disposition home or self-care (01) ==
LOC: EDUNIT#
DX: F15.10 Other stimulant abuse, uncomplicated (principal); F14.10 Cocaine abuse, uncomplicated; F17.200 Nicotine dependence, unspecified, uncomplicated
CPT/HCPCS: 96374; G0480; J2060